=== PATIENT | male | born 1970 | race Hispanic/Latino ===

== ENCOUNTER 2018-04-23 16:06 | Inpatient (IN) | payer MEDICARE ==
[~2018-04-23] VITALS: Ht 180.3 cm; Wt 59.0 kg
[~2018-04-23 16:06] MED LIST: QUET200T PO
[2018-04-23 17:07] LABS: BASOPHILS % (AUTO) 0.3 % (0.0-5.0); EOSINOPHILS % (AUTO) 0.1 % (0.0-8.0); HEMATOCRIT 40.4 % (42-54); LYMPHOCYTES % (AUTO) 5.4 % (21.0-51.0); MEAN CORPUSCULAR HEMOGLOBIN 29.9 pg (27.0-33.0); MEAN CORPUSCULAR HGB CONC 33.3 g/dL (32.0-36.0); MEAN CORPUSCULAR VOLUME 89.6 fL (79-99); MONOCYTES % (AUTO) 4.8 % (3.0-13.0); NEUTROPHILS % (AUTO) 89.4 % (40.0-77.0); PLATELET COUNT (AUTO) 374 K/uL (130-400); RED BLOOD CELL COUNT(AUTO) 4.51 MIL/uL (4.50-6.20); RED CELL DISTRIBUTION WIDTH 15.4 % (11.0-15.5); WHITE BLOOD COUNT (AUTO) 25.9 K/uL (4.8-10.8)
[2018-04-23] MEDS ORDERED: CEFTRIAXONE SODIUM 1 GM ONE (17:09)
[2018-04-23] MEDS ORDERED: IPRATROPIUM/ALBUTEROL SULFATE 3 ML SOLUTION IH ONE ×2 (17:19→19:18)
[2018-04-23 17:27] LABS: AMYLASE 42 U/L (25-115); LIPASE 70 U/L (114-286)
[2018-04-23 17:35] LABS: INR 1.03 (0.85-1.15); PARTIAL THROMBOPLASTIN TIME 33.8 SEC (26.3-35.5); PROTHROMBIN TIME 10.8 SEC (9.6-11.6)
[2018-04-23 17:39] LABS: CREATININE 0.7 mg/dL (0.5-1.5); POTASSIUM 4.2 mmol/L (3.5-5.1)
[2018-04-23] MEDS: SODIUM CHLORIDE 0.9% 1000ML 1,000 ML IV SCH (17:39)
[2018-04-23 17:43] LABS: ALBUMIN 3.6 g/dL (3.5-5.0); BILIRUBIN,TOTAL 1.5 mg/dL (0.2-1.0); TOTAL PROTEIN, SERUM 8.9 g/dL (6.0-8.3)
[2018-04-23] MEDS ORDERED: ONDANSETRON HCL 4 MG/2 ML VIAL IV PRN (17:45)
[2018-04-23] MEDS ORDERED: VANCOMYCIN PROTOCOL PER PHARMACY IV PRN (17:45)
[2018-04-23] MEDS ORDERED: VANCOMYCIN 1GM+NS 250ML 250 ML IV SCH (17:45)
[2018-04-23] MEDS ORDERED: HYDRALAZINE HCL 20 MG/ML VIAL IV PRN (17:45)
[2018-04-23] MEDS ORDERED: LEVOFLOXACIN 500 MG/D5W 100 ML 100 ML ONE (18:58)
[2018-04-23] MEDS: IPRATROPIUM/ALBUTEROL SULFATE 3 ML SOLUTION IH SCH (19:19)
[2018-04-23] MEDS: ZOSYN 3.375GM+NS 50ML 50 ML IV SCH (21:00)
[2018-04-23] MEDS: FAMOTIDINE/PF 20 MG/2 ML VIAL IV SCH (21:00)
[2018-04-23] MEDS ORDERED: ZOSYN 3.375GM+NS 50ML 50 ML IV ONE (21:37)
[2018-04-23] MEDS ORDERED: FAMOTIDINE/PF 20 MG/2 ML VIAL IV ONE (21:38)
[2018-04-23] MEDS ORDERED: QUETIAPINE FUMARATE 100 MG TAB PO SCH (23:59)
[2018-04-24] VITALS (7 sets, daily range): BP systolic 117–151; BP diastolic 77–87
[2018-04-24] MEDS: IPRATROPIUM/ALBUTEROL SULFATE 3 ML SOLUTION IH SCH ×4 (00:40→18:32)
[2018-04-24] MEDS ORDERED: VANCOMYCIN 1GM+NS 250ML 250 ML IV ONE (01:37)
[2018-04-24] MEDS: SODIUM CHLORIDE 0.9% 1000ML 1,000 ML IV SCH ×3 (04:09→23:07)
[2018-04-24] MEDS: METHYLPREDNISOLONE SOD SUCC 40MG/ML 1ML IVP SCH ×2 (04:09→10:43)
[2018-04-24] MEDS: ZOSYN 3.375GM+NS 50ML 50 ML IV SCH ×3 (04:09→21:56)
[2018-04-24] MEDS ORDERED: PHARMACY COMMUNICATION MISC SCH (04:15)
[2018-04-24] MEDS ORDERED: GUAIFENESIN-CODEINE 5 ML SYRUP PO PRN (06:00)
--- NOTE | 2018-04-24 07:10 | NUR ---
During bedside report, pt was noted to have gotten out of bed, pulled out left forearm PIV. Blood on floor, bed. No active bleed at present. Pt escorted back to bed, cleaned up, new gown and linens. Called housekeeping to mop floors. Instructed DINKEY ENGINE FIRER to apply bed alarm (pt has old bed). Addendum: 04/24/18 at 1154 by APOORVA JACINTO RN RN Amended: Links added.
[2018-04-24] MEDS: FAMOTIDINE/PF 20 MG/2 ML VIAL IV SCH ×2 (10:38→21:54)
[2018-04-24] MEDS: VANCOMYCIN 1GM+NS 250ML 250 ML IV SCH ×2 (10:38→21:54)
[2018-04-24] MEDS: ENOXAPARIN SODIUM 40 MG/0.4 ML SYRINGE SQ SCH (10:41)
[2018-04-24] MEDS ORDERED: SODIUM CHLORIDE 3% FOR INHALATION 4 ML/AMP VIAL.NEB IH ONE ×2 (10:45→19:38)
--- NOTE | 2018-04-24 11:26 | NUR ---
Notified Lucy Moreno' office of consult with pt.
--- NOTE | 2018-04-24 11:29 | NUR ---
DYSPHAGIA EVAL COMPLETED. +S/S OF ASPIRATION WITH THIN LIQUIDS VIA CUP SIP. RECOMMEND PUREED, NECTAR-THICK LIQUIDS; PILLS CRUSHED WITH APPLESAUCE. PATIENT INFORMATION: Pt IS A 47 YEAR OLD MALE REFERRED FOR A BEDSIDE DYSPHAGIA EVAL SECONDARY TO HISTORY OF DYSPHAGIA AND POSSIBLE ASPIRATION PNEUMONIA. MBSS COMPLETED ON 04/16/18 WITH RECOMMENDATIONS FOR FINELY CHOPPED, NECTAR-THICK LIQUID DIET. Pt CURRENTLY ADMITTED SECONDARY TO ASPIRATION PNEUMONIA. Pt HAS A PAST MEDICAL HISTORY SIGNIFICANT FOR SCHIZOPHRENIA, PNEUMONIA AND WEIGHT LOSS. REPORTS THAT Pt WAS PARTICIPATING IN SOLID DIET WITH THIN LIQUIDS PRIOR TO ADMISSION. EVALUATION: Pt PRESENTS WITH MODERATE OROPHARYNGEAL DYSPHAGIA CAUSED BY DECREASED ORAL MOTOR COORDINATION, DECREASED TONGUE BASE RETRACTION, DELAYED PHARYNGEAL RESPONSE TIME, DECREASED PRESSURE GENERATION WITHIN THE PHARYNX, E/B DECREASED ROTARY MASTICATION, RESIDUE IN TONGUE BODY, RESULTING IN +S/S OF ASPIRATION WITH THIN LIQUIDS VIA CUPS SIP OF WEAK COUGH RESPONSE AND THROAT CLEAR. RECOMMENDATIONS: 1. PUREED, NECTAR-THICK LIQUIDS; PILLS CRUSHED WITH APPLESAUCE 2. COMPENSATORY STRATEGIES: *SEATED AT 90 DEGREES *SLOW RATE *ALTERNATE BITES AND SIPS 5. DYSPHAGIA THERAPY 3-5X WEEK TO INCREASE ORAL MOTOR STRENGTH AND PHARYNGEAL SWALLOW: LTG#1: Pt WILL TOLERATE LEAST RESTRICTIVE DIET TO MEET NUTRITION/HYDRATION WITH NO S/S OF ASPIRATION. LTG#2: SKILLED EDUCATION Pt/FAMILY/STAFF STG#1: Pt WILL PARTICIPATE IN LARYNGEAL ELEVATION/EXCURSION EXERCISES WITH 80% ACCURACY. STG#2: Pt WILL PARTICIPATE IN TONGUE BASE RETRACTION EXERCISES WITH 80% ACCURACY. STG#3: Pt WILL PARTICIPATE IN ORAL MOTOR EXERCISES WITH 80% ACCURACY. STG#4: Pt WILL PARTICIPATE IN THERAPEUTIC TRIALS OF [facility] SOFT AND THIN LIQUIDS WITH NO S/S OF ASPIRATION. STG#5: SKILLED EDUCATION Pt/FAMILY/STAFF. GIFTS OFFICER REVIEWED RESULTS AND RECOMMENDATIONS WITH Pt, NURSE, AND . VERBALIZED AGREEMENT AND COMPLIANCE WITH RECOMMENDATIONS. GIFTS OFFICER EDUCATED ON RISKS AND CONSEQUENCES OF ASPIRATION. G-CODES SWALLOWING: [id number] Addendum: 04/24/18 at 1139 by GREGORIO LEWIS, [facility] Amended: Links added.
--- NOTE | 2018-04-24 11:40 | NUR ---
Nutrition Intervention: Nutrition screen due to BMI 18.1. Pt. admitted with Dx of Aspiration Pneumonia. Speech consult ordered due to pt. with swallowing difficulty. Pt. S/P Dysphagia evaluation on 04/23/18- TAX SERVICES MANAGER rec. Pureed texture with Yardley Thick liquids. Pt. NPO during visit. Pt. started on Pureed diet with [place]ley Thick Liquids for lunch meal. Labs reviewed(Alb 3.6). LBM: 04/24/18. SR-19, elastic. BMI: 18.1, underweight. Recommendations: 1) Continue current diet. 2) Continue to monitor pt's nutritional status. 3) Consult RD as nutrition concerns arise. Addendum: 04/24/18 at [address] Amended: Links added.
--- NOTE | 2018-04-24 16:46 | NUR ---
Walked in to pt's room as he was eating dinner. Pt coughing and gasping after each bite of pureed foods, family continuing to feed him despite this. Informed family that patient appears to be aspirating, and instructed them to stop. Notified Miki Giraldo NP. Rec'd order for NPO, speech to re-eval in am. Pt able to clear food from airway on his own. No apparent distress.
--- NOTE | 2018-04-24 17:30 | NUR ---
NIRALI NOTES- MET W PATIENT MOTHER AND SISTER. PT MAKES EYE CONTACT, SPEAKS VEYR SOFTLY AND FOLLOW COMAND. GRINDS TEETH, TEARS UP AND MENTION OF HIS SONS NAME. SKIN WARM /HOT, GIRM VERY WEAK WHEN SHAKES HANDS FAMILY STATES PT WAS IN ICU X5 DAYS THEN SENT OT [facility] THEN SENT TO [facility]- FAMILY STATES THEY DID NOT KNOW OF THE TRANSFER. NOW HERE WITH ASPIRATION PNEUMONIA FAMILY STATES THAT UNTIL RECENTLY - OF SON- THE PATIENT WAS FUNCTIONAL- AFTER OF SON HAD DEPRESSION/BREAKDOWN, AND HAD STROKE. NOW ASPIRATING. ABX TX AND PT EVAL . WILL FOLLOW UP FOR PLACMENT OPTION ON DISCHARGE. FAMILY DOES NOT WANT PATIENT TO GO [facility] TO [facility] Addendum: 04/24/18 at 2020 by ELIF MARCELO RN CM Amended: Links added.
[2018-04-24] MEDS ORDERED: ARIPIPRAZOLE 5 MG TABLET PO SCH (21:00)
[2018-04-24] MEDS ORDERED: ALPRAZOLAM 1 MG TAB PO SCH (21:00)
[2018-04-24] MEDS: ARIPIPRAZOLE 5 MG TABLET PO SCH (21:54)
[2018-04-25] MEDS: IPRATROPIUM/ALBUTEROL SULFATE 3 ML SOLUTION IH SCH ×4 (00:41→19:09)
[2018-04-25 03:18] VITALS: BP 125/79
[2018-04-25] MEDS: ZOSYN 3.375GM+NS 50ML 50 ML IV SCH ×3 (04:15→20:30)
[2018-04-25 04:28] LABS: BASOPHILS % (AUTO) 0.2 % (0.0-5.0); HEMATOCRIT 29.4 % (42-54); LYMPHOCYTES % (AUTO) 6.1 % (21.0-51.0); MEAN CORPUSCULAR HEMOGLOBIN 30.2 pg (27.0-33.0); MEAN CORPUSCULAR HGB CONC 33.6 g/dL (32.0-36.0); MEAN CORPUSCULAR VOLUME 89.8 fL (79-99); MONOCYTES % (AUTO) 4.5 % (3.0-13.0); NEUTROPHILS % (AUTO) 89.2 % (40.0-77.0); PLATELET COUNT (AUTO) 306 K/uL (130-400); RED BLOOD CELL COUNT(AUTO) 3.28 MIL/uL (4.50-6.20); RED CELL DISTRIBUTION WIDTH 15.3 % (11.0-15.5); WHITE BLOOD COUNT (AUTO) 15.1 K/uL (4.8-10.8)
[2018-04-25 04:54] LABS: CREATININE 0.5 mg/dL (0.5-1.5); POTASSIUM 3.5 mmol/L (3.5-5.1)
[2018-04-25 07:56] VITALS: BP 129/74
[2018-04-25] MEDS: FAMOTIDINE/PF 20 MG/2 ML VIAL IV SCH ×2 (08:22→20:30)
[2018-04-25] MEDS: ENOXAPARIN SODIUM 40 MG/0.4 ML SYRINGE SQ SCH (08:22)
[2018-04-25] MEDS: VANCOMYCIN 1GM+NS 250ML 250 ML IV SCH (08:23)
[2018-04-25] MEDS: SODIUM CHLORIDE 0.9% 1000ML 1,000 ML IV SCH ×2 (09:44→20:29)
[2018-04-25 11:04] VITALS: BP 141/82
--- NOTE | 2018-04-25 15:12 | NUR ---
BEDSIDE DYSPHAGIA RE-EVAL COMPLETE. +S/S OF ASPIRATION WITH PUREE AND NECTAR LIQUIDS. RECOMMEND SHORT-TERM ALTERNATE MEANS OF NUTRITION/HYDRATION (NG) AND MBSS FOR FRIDAY. PATIENT INFORMATION: Pt IS 47 Y.O. MALE REFERRED FOR DYSPHAGIA RE-EVAL SECONDARY TO NURSING OBSERVED COUGHING, CHOKING, AND GASPING FOR AIR, WITH PREVIOUSLY RECOMMENDED DIET OF PUREE TEXTURES AND NECTAR THICK LIQUIDS. Pt SEEN BY METAL WORK DUCT INSTALLER ON 04/24/18 WITH RECOMMENDATION OF PUREE TEXTURES AND NECTAR THICK LIQUIDS SECONDARY TO +S/S OF ASPIRATION WITH THIN LIQUIDS. Pt ALSO HAD MBSS ON 04/16/18 WITH RECOMMENDATION OF [facility] SOFT FINELY CHOPPED TEXTURES AND NECTAR THICK LIQUIDS. PER REPORT, Pt WAS NOT DRINKING NECTAR THICK LIQUIDS AT HOME AND IS NOW ADMITTED WITH DX OF ASPIRATION PNEUMONIA. ALSO REPORTS SHE HAS NOTICED A PATTERN OF DIFFICULTY SWALLOWING WHEN Pt IS TAKING SEROQUEL. SEROQUEL D/C'd ON 04/23/18. PMHX SIGNIFICANT FOR SCHIZOPHRENIA, PNEUMONIA, AND WEIGHT LOSS. EVALUATION: Pt PRESENTS WITH MODERATE ORAL AND SEVERE PHARYNGEAL DYSPHAGIA C/B DECREASED ORAL STRENGTH AND ROM, DECREASED ORAL COORDINATION, DELAYED PHARYNGEAL RESPONSE TIME, DECREASED PHARYNGEAL STRIPPING, DECREASED LARYNGEAL ELEVATION/EXCURSION, AND IMPAIRED AIRWAY PROTECTION E/B INCREASED ORAL PREP TIME WITH PUREE, ORAL RESIDUE WITH PUREE, AND +S/S OF ASPIRATION OF COUGH AND THROAT CLEARING WITH PUREE AND NECTAR THICK LIQUIDS. RECOMMENDATIONS: 1. MBSS FOR FRIDAY 2. SHORT TERM ALTERNATE MEANS OF NUTRITION/HYDRATION (NG) UNTIL MBSS RESULTS G-CODES SWALLOWING: [id number] - [id number] - Addendum: 04/25/18 at 1528 by SANDOVAL MONTALVO Amended: Links added.
[2018-04-25 16:10] VITALS: BP 136/86
--- NOTE | 2018-04-25 16:30 | NUR ---
ST RECOMMENDATIONS INFORMED PAULA MARCUS, FITNESS/WELLNESS DIRECTOR FOR HOSPITALIST REGARDING SPEECH THERAPY RECOMMENDATIONS, REPLIED TO KEEP PATIENT NPO FOR NOW AND HOSPITALIST WILL TALK TO FAMILY TOMORROW REGARDING POSSIBLE FEEDING TUBE PLACEMENT.
[2018-04-25 19:00] VITALS: BP 138/85
[2018-04-25] MEDS ORDERED: COMPOUND IV REFRIGERATED 1 EACH IVSOLN MISC PRN (21:00)
[2018-04-25] MEDS: ARIPIPRAZOLE 5 MG TABLET PO SCH (21:00)
[2018-04-25] MEDS: VANCOMYCIN 1.25 GM in SODIUM CHLORIDE 0.9% 250 ML IV SCH (22:32)
[2018-04-25 23:13] VITALS: BP 131/90
[2018-04-26] MEDS: IPRATROPIUM/ALBUTEROL SULFATE 3 ML SOLUTION IH SCH ×4 (00:22→18:32)
[2018-04-26 03:25] VITALS: BP 139/77
[2018-04-26] MEDS: ZOSYN 3.375GM+NS 50ML 50 ML IV SCH ×3 (05:15→20:58)
[2018-04-26] MEDS: SODIUM CHLORIDE 0.9% 1000ML 1,000 ML IV SCH (05:15)
[2018-04-26 06:02] LABS: BASOPHILS % (AUTO) 0.6 % (0.0-5.0); EOSINOPHILS % (AUTO) 0.2 % (0.0-8.0); HEMATOCRIT 27.8 % (42-54); MEAN CORPUSCULAR HEMOGLOBIN 30.6 pg (27.0-33.0); MEAN CORPUSCULAR HGB CONC 34.2 g/dL (32.0-36.0); MEAN CORPUSCULAR VOLUME 89.5 fL (79-99); MONOCYTES % (AUTO) 8.8 % (3.0-13.0); NEUTROPHILS % (AUTO) 73.4 % (40.0-77.0); PLATELET COUNT (AUTO) 253 K/uL (130-400); RED BLOOD CELL COUNT(AUTO) 3.11 MIL/uL (4.50-6.20); RED CELL DISTRIBUTION WIDTH 15.2 % (11.0-15.5); WHITE BLOOD COUNT (AUTO) 9.7 K/uL (4.8-10.8)
[2018-04-26 06:18] LABS: ALBUMIN 2.4 g/dL (3.5-5.0); CREATININE 0.5 mg/dL (0.5-1.5); TOTAL PROTEIN, SERUM 6.2 g/dL (6.0-8.3)
[2018-04-26 06:22] LABS: POTASSIUM 2.9 mmol/L (3.5-5.1)
[2018-04-26] MEDS: LIDOCAINE HCL-MPF 1% 2ML VIAL IVP PRN ×2 (07:39→13:52)
[2018-04-26] MEDS: POTASSIUM CHLORIDE 20MEQ/100ML 100 ML IV PRN ×2 (07:39→13:52)
[2018-04-26 08:00] VITALS: BP 133/83
--- NOTE | 2018-04-26 09:30 | NUR ---
MEDICATIONS ADMINISTRATION ADMINISTERED SCHEDULED PEPCID, VANCOMYCIN, AND LOVENOX. REFER TO EMAR FOR TIMES GIVEN, USERNAME ON [employer] IS INCORRECT.
[2018-04-26] MEDS: FAMOTIDINE/PF 20 MG/2 ML VIAL IV SCH ×2 (09:32→20:58)
[2018-04-26] MEDS: ENOXAPARIN SODIUM 40 MG/0.4 ML SYRINGE SQ SCH (09:32)
[2018-04-26] MEDS: VANCOMYCIN 1.25 GM in SODIUM CHLORIDE 0.9% 250 ML IV SCH ×2 (09:33→20:59)
[2018-04-26 11:53] VITALS: BP 137/91
[2018-04-26] MEDS: DEXTROSE 5 % AND 0.9 % NACL 1,000 ML IV SCH ×2 (13:52→21:54)
[2018-04-26 16:24] VITALS: BP 135/84
[2018-04-26 19:11] VITALS: BP 128/83
[2018-04-26] MEDS: ARIPIPRAZOLE 5 MG TABLET PO SCH (20:59)
[2018-04-26 23:12] VITALS: BP 137/67
[2018-04-27] MEDS: IPRATROPIUM/ALBUTEROL SULFATE 3 ML SOLUTION IH SCH ×5 (00:08→23:37)
[2018-04-27 04:00] VITALS: BP 130/88
[2018-04-27] MEDS: ZOSYN 3.375GM+NS 50ML 50 ML IV SCH ×3 (04:43→22:46)
[2018-04-27 06:45] LABS: BASOPHILS % (AUTO) 0.5 % (0.0-5.0); EOSINOPHILS % (AUTO) 1.5 % (0.0-8.0); HEMATOCRIT 30.6 % (42-54); LYMPHOCYTES % (AUTO) 19.2 % (21.0-51.0); MEAN CORPUSCULAR HEMOGLOBIN 30.8 pg (27.0-33.0); MEAN CORPUSCULAR HGB CONC 34.9 g/dL (32.0-36.0); MEAN CORPUSCULAR VOLUME 88.4 fL (79-99); MONOCYTES % (AUTO) 11.2 % (3.0-13.0); NEUTROPHILS % (AUTO) 67.6 % (40.0-77.0); PLATELET COUNT (AUTO) 274 K/uL (130-400); RED BLOOD CELL COUNT(AUTO) 3.46 MIL/uL (4.50-6.20); RED CELL DISTRIBUTION WIDTH 14.6 % (11.0-15.5); WHITE BLOOD COUNT (AUTO) 8.4 K/uL (4.8-10.8)
[2018-04-27] MEDS: DEXTROSE 5 % AND 0.9 % NACL 1,000 ML IV SCH ×2 (06:46→22:47)
[2018-04-27 07:23] LABS: ALBUMIN 2.3 g/dL (3.5-5.0); BILIRUBIN,TOTAL 1.3 mg/dL (0.2-1.0); CREATININE 0.6 mg/dL (0.5-1.5); TOTAL PROTEIN, SERUM 6.4 g/dL (6.0-8.3)
[2018-04-27 07:26] LABS: POTASSIUM 2.9 mmol/L (3.5-5.1)
[2018-04-27 08:33] VITALS: BP 120/77
--- NOTE | 2018-04-27 09:00 | NUR ---
NOTE AWAKE, ALERT. NONVERBAL DOES TRY TO SAY SOME WORDS BUT ARE JUST INCOMPREHENSIBLE TO UNDERSTAND. APPEARS TO UNDERSTAND WHAT WE TELL HIM AND FOLLOW SOME COMMANDS. HAS BEEN THIS WAY, ACCORDING TO FAMILY, SINCE TRAUMATIC OF HIS SON AND OTHER FAMILY EVENTS. HE HAS H/O PSYCHIATRIC PROBLEMS AND HAS BEEN SEEN BY DR MCKENZIE HERE WELL. WAS DX WITH PNA ON ADMISSION PER ABNORMAL CXR AND SWALLOW REFLEX HAVE BEEN EVALUATED TWICE SINCE HE HAS BEEN HERE AND HAVE GOTTEN WORSE SINCE ADMISSION. HE WILL HAVE MBSS TODAY RECOMMENDED BY S.T. WILL REMAIN NPO UNTIL THEN.
[2018-04-27] MEDS: FAMOTIDINE/PF 20 MG/2 ML VIAL IV SCH ×2 (11:12→22:46)
[2018-04-27] MEDS: ENOXAPARIN SODIUM 40 MG/0.4 ML SYRINGE SQ SCH (11:12)
[2018-04-27] MEDS: VANCOMYCIN 1.25 GM in SODIUM CHLORIDE 0.9% 250 ML IV SCH ×2 (11:12→22:46)
[2018-04-27] MEDS: POTASSIUM CHLORIDE 20MEQ/100ML 100 ML IV PRN ×2 (11:13→18:29)
[2018-04-27 11:55] VITALS: BP 134/90
--- NOTE | 2018-04-27 13:17 | NUR ---
DC PLANNING SNF VS [facility] SPOKE TO SPOUSE, MD AND LELE. PT RECENT FUNCTIONAL DECLINE- PREVIOUSLY CARE FOR BY FAMILY RECENT PSYCH MED CHANGES. RECENT PLACEMENT AT [facility] SADE BROCK FOR WANDERING? SPOUSE SAYS UNSURE WHY PT WAS TRANSFERRED TO [facility] WHEN HE FOLLOWS COMMAND AND DOES NOT TRY TO ESCAPE/ GET OUT OF BED. PT HAS SEMI CONTRACTED HANDS, UNABLE TO FEED SELF- HAS PT OT ST NEEDS Addendum: 04/27/18 at 1323 by ELIF MARCELO RN CM Amended: Links added.
--- NOTE | 2018-04-27 13:24 | NUR ---
MBSS COMPLETED. ASPIRATION WITH MIXED AND DEEP PENETRATION WITH THIN LIQUIDS VIA CUP SIP. RECOMMEND PUREED, NECTAR-THICK LIQUIDS; PILLS CRUSHED WITH APPLESAUCE. PATIENT INFORMATION: Pt IS A 47 YEAR OLD MALE REFERRED FOR AN MBSS SECONDARY TO +S/S OF ASPIRATION DURING BEDSIDE DYSPHAGIA EVALUATION. Pt COOPERATIVE DURING THE MBSS WITH LIMITED VERBAL OUTPUT. Pt CURRENTLY ADMITTED SECONDARY TO ASPIRATION PNEUMONIA. Pt HAS A PAST MEDICAL HISTORY SIGNIFICANT FOR SCHIZOPHRENIA, PNEUMONIA AND WEIGHT LOSS. MBSS INTERPRETATION: Pt PRESENTS WITH MODERATE OROPHARYNGEAL DYSPHAGIA CAUSED BY DECREASED ORAL MOTOR COORDINATION AND STRENGTH, DECREASED TONGUE BASE RETRACTION, DELAYED PHARYNGEAL RESPONSE TIME, DECREASED PRESSURE GENERATION WITHIN THE PHARYNX, E/B DECREASED LABIAL SEAL, DECREASED SPOON STRIPPING, DECREASED ROTARY MASTICATION, HOLDING OF BOLUS IN ORAL CAVITY, MULTIPLE SWALLOWS PER BOLUS, SEVERE POOLING IN THE VALLECULAE WITH SPILLOVER IN TO PYRIFORM SINUS (CLEARED WITH RE-SWALLOW AND LIQUID WASH), RESULTING IN DEEP PENETRATION WITH THIN LIQUIDS VIA TSP AND ASPIRATION WITH MIXED TEXTURE. TRIALS: 1. TSP PUREED: POOLING IN THE VALLECULAE CLEARED WITH RE-SWALLOW 2. TSP NECTAR-THICK LIQUIDS: POOLING IN THE VALLECULAE 3. TSP PUDDING: POOLING IN THE VALLECULAE 4. TSP MIXED: ASPIRATION 5. TSP THIN LIQUIDS: DEEP PENETRATION 6. CUP SIP NECTAR-THICK LIQUIDS: POOLING IN VALLECULAE AND PYRIFORM SINUS 7. TSP HONEY-THICK: GOOD WITH RESIDUE IN VALLECULAE AND PYRIFORM SINUS 8. CUP SIP NECTAR-THICK LIQUIDS: GOOD 9. DRY SWALLOW AFTER 2 MINUTES FROM PRIOR PRESENTATION: POOLING CLEARED RECOMMENDATIONS: 1. PUREED, NECTAR-THICK LIQUIDS; PILLS WHOLE WITH LIQUIDS 2. COMPENSATORY STRATEGIES: *SEATED AT 90 DEGREES *SLOW RATE *ALTERNATE BITES AND SIPS *NO STRAW *RE-SWALLOW *REMAIN UPRIGHT 30 MINUTES AFTER THE MEAL 5. DYSPHAGIA THERAPY 3-5X WEEK TO INCREASE ORAL MOTOR STRENGTH AND PHARYNGEAL SWALLOW: LTG#1: Pt WILL TOLERATE LEAST RESTRICTIVE DIET TO MEET NUTRITION/HYDRATION WITH NO S/S OF ASPIRATION. LTG#2: SKILLED EDUCATION Pt/FAMILY/STAFF STG#1: Pt WILL PARTICIPATE IN LARYNGEAL ELEVATION/EXCURSION EXERCISES WITH 80% ACCURACY. STG#2: Pt WILL PARTICIPATE IN TONGUE BASE RETRACTION EXERCISES WITH 80% ACCURACY. STG#3: Pt WILL PARTICIPATE IN ORAL MOTOR EXERCISES WITH 80% ACCURACY. STG#4: Pt WILL PARTICIPATE IN THERAPEUTIC TRIALS OF THIN LIQUIDS WITH NO S/S OF ASPIRATION,. STG#5: SKILLED EDUCATION Pt/FAMILY/STAFF. CITY MAIL CARRIER REVIEWED RESULTS AND RECOMMENDATIONS WITH Pt, NURSE, AND . CITY MAIL CARRIER PROVIDED WITH A THICKENER TO USE IN THE HOME SETTING. SHE VERBALIZED AGREEMENT AND COMPLIANCE WITH RECOMMENDATIONS. CITY MAIL CARRIER EDUCATED ON RISKS AND CONSEQUENCES OF ASPIRATION. G-CODES SWALLOWING: [id number] Addendum: 04/27/18 at 1333 by GREGORIO LEWIS, [facility] Amended: Links added.
[2018-04-27 16:18] VITALS: BP 126/76
--- NOTE | 2018-04-27 17:00 | NUR ---
DECLINED BY IRU, REFERRAL TO SN[facility]. PENDING EVALUATION
--- NOTE | 2018-04-27 18:00 | NUR ---
NOTE DID NOT HAVE ANY CHANGES IN LOC. HE COMPLETED HIS MBSS AND WAS RECOMMENDED THAT HE GETS A MODIFIED DIET. INFORMED PRIMARY CARE TEAM AND ORDERS RECEIVED TO FOLLOW RECOMMENDATIONS. INSTRUCTIONS FOR PEOPLE THAT HELP HIM WITH HIS MEALS ARE WRITTEN ON THE BOARD.HE HAS ALSO BEEN RECEIVING COVERAGE FOR LOW POTASSIUM LEVELS.
[2018-04-27 20:00] VITALS: BP 133/87
[2018-04-27] MEDS: ARIPIPRAZOLE 5 MG TABLET PO SCH (22:46)
[2018-04-28] VITALS: BP 123/82
[2018-04-28 04:00] VITALS: BP 128/92
[2018-04-28 05:09] LABS: MEAN CORPUSCULAR HEMOGLOBIN 30.1 pg (27.0-33.0); MEAN CORPUSCULAR HGB CONC 34.3 g/dL (32.0-36.0); MEAN CORPUSCULAR VOLUME 87.5 fL (79-99); PLATELET COUNT (AUTO) 319 K/uL (130-400); RED CELL DISTRIBUTION WIDTH 14.7 % (11.0-15.5); WHITE BLOOD COUNT (AUTO) 7.6 K/uL (4.8-10.8)
[2018-04-28 05:17] LABS: CREATININE 0.5 mg/dL (0.5-1.5)
[2018-04-28] MEDS: ZOSYN 3.375GM+NS 50ML 50 ML IV SCH ×3 (05:53→21:45)
[2018-04-28] MEDS: POTASSIUM CHLORIDE 20MEQ/100ML 100 ML IV PRN ×2 (05:54→10:03)
[2018-04-28] MEDS: LIDOCAINE HCL-MPF 1% 2ML VIAL IVP PRN ×2 (05:56→10:05)
[2018-04-28] MEDS: IPRATROPIUM/ALBUTEROL SULFATE 3 ML SOLUTION IH SCH ×4 (06:03→23:18)
[2018-04-28 08:02] VITALS: BP 143/95
[2018-04-28] MEDS: FAMOTIDINE/PF 20 MG/2 ML VIAL IV SCH ×2 (08:10→21:46)
[2018-04-28] MEDS: ENOXAPARIN SODIUM 40 MG/0.4 ML SYRINGE SQ SCH (08:11)
[2018-04-28] MEDS: VANCOMYCIN 1.25 GM in SODIUM CHLORIDE 0.9% 250 ML IV SCH ×2 (10:02→21:46)
[2018-04-28] MEDS: DEXTROSE 5 % AND 0.9 % NACL 1,000 ML IV SCH (10:05)
[2018-04-28 11:01] VITALS: BP 132/91
--- NOTE | 2018-04-28 12:27 | NUR ---
SWALLOWING TREATMENT COMPLETED. S: Pt RAISED TO 90 DEGREES IN BED. Pt COUGHING WHILE TAKING DEEP BREATHS PRIOR TO PRESENTATION OF P.O. NURSE ARASH REPORTS Pt HAS BEEN COUGHING AND HAS CONCERNS OF POSSIBLE ASPIRATION. PLEASE NOTE THAT THIN LIQUIDS WERE PRESENT AT SIDE OF THE BED, LIQUIDS THICKENED BY ANIMAL SURGEON. O: Pt CURRENTLY TARGETING SWALLOWING GOALS. RESULTS OF GOALS ARE FOLLOWS: *Pt PARTICIPATED IN THERAPEUTIC TRIALS OF PUDDING AND NECTAR-THICK LIQUIDS X10 WITH THE FOLLOWING ASPIRATION PRECAUTIONS ENSURED BY ANIMAL SURGEON: SEATED AT 90, SLOW RATE, RE-SWALLOW AFTER EACH TRIAL, NO STRAW. Pt WITH NO S/S OF ASPIRATION PRESENT DURING ANY TRIAL. ANIMAL SURGEON PROVIDED INCREASED VERBAL CUES AND TACTILE CUES TO COMPLETE RE-SWALLOW. Pt REMAIN UPRIGHT AFTER P.O. NO COUGHING, THROAT CLEARING OR DIFFICULTY BREATHING PRESENT AFTER P.O. *Pt DID NOT COMPLETE LARYNGEAL ELEVATION AND ORAL MOTOR EXERCISES SECONDARY TO DECREASED ABILITIES TO FOLLOW COMMANDS. MULTIPLE ATTEMPTS BY ANIMAL SURGEON TO COMPLETE EXERCISES: UNSUCCESSFUL. A: Pt WITH IMPROVED SWALLOW FUNCTION AND ABLE TO PROVIDE RE-SWALLOW. SAFE SWALLOW PRECAUTIONS ARE ON Pt'S WHITE BOARD; WRITTEN BY ANIMAL SURGEON. P: RECOMMEND CONTINUED SKILLED SPEECH THERAPY AND EDUCATION TO FAMILY ON RISKS AND CONSEQUENCES OF ASPIRATION. RECOMMEND CONTINUED PUREED, NECTAR-THICK LIQUID DIET; PILLS CRUSHED WITH APPLESAUCE. ANIMAL SURGEON WILL CONTINUE TO FOLLOW Pt TOLERATED. Addendum: 04/28/18 at 1237 by GREGORIO LEWIS [facility] Amended: Links added.
[2018-04-28] MEDS ORDERED: MAGNESIUM 2GM PREMIX 50ML 50 ML IV PRN (12:45)
--- NOTE | 2018-04-28 14:03 | NUR ---
Nutrition f/u: As per pt's Bag Bleacher's request, RD screen and assessed patient for malnutrition. Pt with moderate to severe protein calori malnutrition. BMI 18.1. Poor PO intake. No family at bedside to obtain nutrition feedback on eating patterns and wt changes. As per pt's caser shoe parts, pt does not initiate walking on his own, requires assistance. Alb 2.3, dropping since previous RD visit. Recommendations: Feeding assistance to redirect him to eating. Consult RD when pt's primary caregiver is present. Continue current diet therapy with FRONT OFFICE SPECIALIST texture recommendations. Nutrition supplementation once daily for added caloric and protein intake. Addendum: 04/28/18 at [address] Amended: Links added.
[2018-04-28 16:48] VITALS: BP 146/88
--- NOTE | 2018-04-28 16:50 | NUR ---
[facility] HERE TO EVALUATE PT PENDING ACCEPTANCE TOMORROW
[2018-04-28 20:00] VITALS: BP 133/90
[2018-04-28] MEDS: ARIPIPRAZOLE 5 MG TABLET PO SCH (21:46)
[2018-04-29] VITALS: BP 138/86
[2018-04-29] MEDS: DEXTROSE 5 % AND 0.9 % NACL 1,000 ML IV SCH ×2 (03:44→10:18)
[2018-04-29 04:05] VITALS: BP 133/96
[2018-04-29 04:07] LABS: HEMATOCRIT 34.6 % (42-54); MEAN CORPUSCULAR HEMOGLOBIN 30.7 pg (27.0-33.0); MEAN CORPUSCULAR HGB CONC 34.3 g/dL (32.0-36.0); MEAN CORPUSCULAR VOLUME 89.4 fL (79-99); NUCLEATED RED BLOOD CELLS 0.1 % (0.0-0.19); PLATELET COUNT (AUTO) 326 K/uL (130-400); RED BLOOD CELL COUNT(AUTO) 3.87 MIL/uL (4.50-6.20); RED CELL DISTRIBUTION WIDTH 14.8 % (11.0-15.5)
[2018-04-29 05:08] LABS: CREATININE 0.5 mg/dL (0.5-1.5); POTASSIUM 3.2 mmol/L (3.5-5.1)
[2018-04-29] MEDS: ZOSYN 3.375GM+NS 50ML 50 ML IV SCH ×2 (05:41→17:11)
[2018-04-29] MEDS: IPRATROPIUM/ALBUTEROL SULFATE 3 ML SOLUTION IH SCH ×3 (06:16→19:03)
[2018-04-29 09:33] VITALS: BP 124/90
[2018-04-29] MEDS: POTASSIUM CHLORIDE 20MEQ/100ML 100 ML IV PRN (10:18)
[2018-04-29] MEDS: FAMOTIDINE/PF 20 MG/2 ML VIAL IV SCH (10:18)
[2018-04-29] MEDS: VANCOMYCIN 1.25 GM in SODIUM CHLORIDE 0.9% 250 ML IV SCH (10:18)
[2018-04-29] MEDS: ENOXAPARIN SODIUM 40 MG/0.4 ML SYRINGE SQ SCH (10:19)
--- NOTE | 2018-04-29 10:55 | NUR ---
ACCEPTED AT [facility]!!
[2018-04-29 11:30] VITALS: BP 129/85
--- NOTE | 2018-04-29 12:08 | NUR ---
MEAL OBSERVATION COMPLETED. RECOMMEND LONG-TERM ALTERNATE MEANS OF NUTRITION/HYDRATION WITH PLEASURE FEEDS OF PUREED, NECTAR-THICK LIQUIDS. Pt RAISED TO 90 DEGREES WITH P.O.PRESENTATION PROVED BY WEEKEND RECEPTIONIST: SLOW RATE, ALTERNATE BITES AND SIPS, SMALL BITES AND SIPS, CUE FOR SWALLOW. Pt WITH +S.S OF ASPIRATION AFTER MINUTES OF P.O. OF COUGH RESPONSE AND HEAVY BREATHING. Pt WITH MBSS RESULTS OF NO ASPIRATION, HOWEVER, FATIGUE IS AN ISSUE AT THIS TIME. RESULTING IN ASPIRATION DUE TO FATIGUE IN THE LATTER PART OF P.O. FAMILY WAS NOT PRESENT AT THIS TIME TO REVIEW RECOMMENDATIONS AND PLAN OF CARE. WEEKEND RECEPTIONIST DISCUSSED RECOMMENDATIONS WITH NURSE GUERIN. RECOMMENDATIONS: 1. LONG-TERM ALTERNATE MEANS OF NUTRITION/HYDRATION 2. PLEASURE FEEDS OF PUREED, NECTAR-THICK LIQUIDS 3. GI CONSULT Addendum: 04/29/18 at 1213 by GREGORIO LEWIS, [facility] ST Amended: Links added.
[2018-04-29 16:54] VITALS: BP 136/89
--- NOTE | 2018-04-29 16:55 | NUR ---
CM NOTE AND UPDATE SPOKE TO NAMAN BELL PERSON ABOUT TIMING OF ABX TONIGHT; LAST DOES OF [place] IS AT 9 PM COULD PT GO IN AM? SHE STATED IT WAS OK FOR PATIENT TO GO TONIGHT EVEN IF IT MEANS MISSING A SCHEDULED DOSE OF ABX- PT CAN START IN AM. ASKED NAMAN BELL PERSON ABOUT THE RECOMMENDATION FOR A PEG FROM SPEECH . NAMAN STATES PATIENT HAD PASSED TWO MBSS WITH MODIFICATIONS; DID NOT NEED TO ORDER ANOTHER , STATES MD SAID THAT IF PT HAS PASSED MBSS, IT IS NOT APPROPRIATE TO TALK TO FAMILY ABOUT A PEG. PT IS GOING FOR SPEECH THERAPY AT [facility], LETS SEE HOW HE DOES . LET PRIMARY RN KNOW
--- NOTE | 2018-04-29 17:00 | NUR ---
NOTIFIED NIRALI ASENCIO OF ST EVAL TODAY AND OF RECOMMENDATIONS FOR PEG, GI CONSULT. NIRALI NOTIFIED NURSE THAT SHE SPOKE WITH Radha LUIS NP FOR HOSPITALIST, WHO INDICATED THAT FAMILY IS NOT WILLING TO DO PEG PLACEMENT, AND THAT PT WILL STILL BE DISCHARGED TO SNF TODAY.
--- NOTE | 2018-04-29 19:10 | NUR ---
REPORT CALLED TO [facility] NURSE AISHA SHEPPARD, COOK[facility]; SHE REQUESTED PIV'S BE LEFT IN PLACE FOR USE AT THEIR FACILITY. NOTIFIED OMID LORENZANA OF TRANSFER. DISCHARGE TEACHING VIA TELEPHONE WITH ; EMPHASIS ON IMPORTANCE OF TAKING MEDICATIONS EXACTLY DIRECTED AND IMPORTANCE OF FOLLOWING DIETARY RECOMMENDATIONS. [facility] HERE TO HOSPITALITY SERVICES MANAGER PATIENT. PIV'S LEFT IN PLACE PER REQUEST. PT IN STABLE CONDITION AT TIME OF DISCHARGE. ALL ORDERS AND CHART COPY GIVEN TO [facility] SHIFT LAB TECHNICIAN. PT IN STABLE CONDITION AT TIME OF DISCHARGE.
--- NOTE | 2018-04-30 09:22 | NUR ---
DC Plan Discharged to [facility] Addendum: 04/30/18 at 0923 by DAVE CAMPOS CM Amended: Links added.
== END 2018-04-29 19:30 | DRG 871 ==
LOC: EDH 16:06 → EDHIP 17:39 → 4CH 04-24 00:53 → 4BH 04-24 21:31
PROVIDERS: ADMIT Internal Medicine; ATTEND Internal Medicine
DX: A41.9 Sepsis, unspecified organism (principal); J69.0 Pneumonitis due to inhalation of food and vomit; E46 Unspecified protein-calorie malnutrition; Z68.1 Body mass index [BMI] 19.9 or less, adult; E87.6 Hypokalemia; F20.9 Schizophrenia, unspecified; F31.9 Bipolar disorder, unspecified; R13.12 Dysphagia, oropharyngeal phase; Z83.3 Family history of diabetes mellitus; Z82.49 Family history of ischemic heart disease and other diseases of the circulatory system; Z74.01 Bed confinement status
CPT/HCPCS: 31720; 36415; 71045; 74230; 80048; 80053; 80202; 82150; 82550; 83605; 83690; 83735; 84132; 85025; 85027; 85610; 85730; 87040; 87071; 87205; 87449; 87486; 87581; 87633; 87798; 87804; 92526; 92610; 92611; 93005; 94640; 94664; 97039; G0378; J0696; J1650; J1956; J2543; J2920; J3370; J3475; J3480; J3490; J7030; J7042

== ENCOUNTER 2018-05-06 20:35 | Emergency (ER) | payer MEDICARE ==
[2018-05-06] MEDS ORDERED: PREDNISONE 20 MG TABLET ONE (21:57)
== END 2018-05-06 22:18 | disposition home or self-care (01) ==
LOC: EDH 20:35
DX: J20.9 Acute bronchitis, unspecified (principal); F20.9 Schizophrenia, unspecified
CPT/HCPCS: 71045

== ENCOUNTER 2018-05-08 10:39 | Inpatient (IN) | payer MEDICARE ==
[~2018-05-08] VITALS: Ht 180.3 cm; Wt 55.8 kg
[2018-05-08 11:30] LABS: BASOPHILS % (AUTO) 0.7 % (0.0-5.0); EOSINOPHILS % (AUTO) 2.7 % (0.0-8.0); HEMATOCRIT 37.5 % (42-54); LYMPHOCYTES % (AUTO) 9.6 % (21.0-51.0); MEAN CORPUSCULAR HEMOGLOBIN 30.2 pg (27.0-33.0); MEAN CORPUSCULAR HGB CONC 33.2 g/dL (32.0-36.0); MEAN CORPUSCULAR VOLUME 90.9 fL (79-99); MONOCYTES % (AUTO) 6.3 % (3.0-13.0); NEUTROPHILS % (AUTO) 80.7 % (40.0-77.0); PLATELET COUNT (AUTO) 274 K/uL (130-400); RED BLOOD CELL COUNT(AUTO) 4.13 MIL/uL (4.50-6.20); RED CELL DISTRIBUTION WIDTH 15.5 % (11.0-15.5)
[2018-05-08 11:40] LABS: CARBON DIOXIDE 28 mmol/L (21-32); CHLORIDE 108 mmol/L (101-111); CREATININE 2.4 mg/dL (0.5-1.5); GLOMERULAR FILTR. RATE CALC 31 mL/min (>60); GLUCOSE,RANDOM 100 mg/dL (70-105); POTASSIUM 3.4 mmol/L (3.5-5.1); SODIUM SERUM 145 mmol/L (136-145); UREA NITROGEN, BLOOD 30 mg/dL (7-18)
[2018-05-08 11:46] LABS: ALANINE AMINOTRANSFERASE 27 U/L (12-78); ASPARTATE AMINOTRANSFERASE 15 U/L (10-37); BILIRUBIN,TOTAL 0.7 mg/dL (0.2-1.0); CREATINE KINASE, TOTAL 111 U/L (21-232); LIPASE 147 U/L (114-286); TOTAL PROTEIN, SERUM 7.7 g/dL (6.0-8.3)
[2018-05-08 11:55] LABS: PARTIAL THROMBOPLASTIN TIME 32.6 SEC (26.3-35.5); PROTHROMBIN TIME 10.5 SEC (9.6-11.6)
[2018-05-08 12:03] LABS: ALCOHOL, BLOOD < 3 mg/dL (0-10)
[2018-05-08] MEDS: MEGESTROL 400 MG/10 ML UDCUP PO SCH (18:00)
[2018-05-08] MEDS ORDERED: ONDANSETRON HCL 4 MG/2 ML VIAL IV PRN (18:00)
[2018-05-08] MEDS ORDERED: ACETAMINOPHEN 325 MG TAB PO PRN (18:00)
[2018-05-08 18:28] LABS: APPEARANCE,URINE CLEAR (CLEAR); BILIRUBIN,URINE NEGATIVE (NEGATIVE); COLOR,URINE YELLOW (YELLOW); GLUCOSE, URINE (UA) NEGATIVE (NEGATIVE); KETONES,URINE NEGATIVE (NEGATIVE); LEUKOCYTE ESTERASE ,URINE SMALL (NEGATIVE); NITRATE,URINE NEGATIVE (NEGATIVE); OCCULT BLOOD,URINE LARGE (NEGATIVE); PH,URINE 5.5 (5.0-8.0); PROTEIN,URINE NEGATIVE (NEGATIVE); UROBILINOGEN,URINE 0.2 mg/dL (0.2-1.0)
[2018-05-08 18:36] LABS: AMPHET/METH SCREEN,URINE NEGATIVE (NEGATIVE); BARBITURATE SCREEN, URINE NEGATIVE (NEGATIVE); BENZODIAZEPINES SCREEN,URINE NEGATIVE (NEGATIVE); CANNABINOID SCREEN,URINE NEGATIVE (NEGATIVE); COCAINE SCREEN,URINE NEGATIVE (NEGATIVE); OPIATE SCREEN,URINE NEGATIVE (NEGATIVE); PHENCYCLIDINE SCREEN,URINE NEGATIVE (NEGATIVE)
[2018-05-08] MEDS ORDERED: DOXYCYCLINE 100MG+NS 250ML 250 ML IV ONE (18:39)
[2018-05-08 18:46] LABS: AMORPHOUS SEDIMENT,UR Rare /LPF (None Seen); BACTERIA,URINE Rare /HPF (None Seen); SQUAMOUS EPITHELIAL CELL,UR Rare /HPF (0-2)
[2018-05-08] MEDS: DOXYCYCLINE 100MG+NS 250ML 250 ML IV SCH (20:00)
[2018-05-08] MEDS: ARIPIPRAZOLE 5 MG TABLET PO SCH (21:00)
[2018-05-08] MEDS ORDERED: DOXY100C2 PO (23:40)
[2018-05-08] MEDS ORDERED: FAMO20TA8 PO (23:40)
[2018-05-08] MEDS ORDERED: DOCU-116 PO (23:40)
[2018-05-08] MEDS ORDERED: PRED20TA3 PO (23:40)
[2018-05-08] MEDS ORDERED: DEXT15CA20 PO (23:40)
[2018-05-08] MEDS ORDERED: ARIP5TAB9 PO (23:40)
[2018-05-09] MEDS ORDERED: LIDOCAINE HCL-MPF 1% 2ML VIAL IVP PRN ×2 (03:30→12:30)
[2018-05-09 04:00] VITALS: BP 113/64
[2018-05-09] MEDS: SODIUM CHLORIDE 0.9% 1000ML 1,000 ML IV SCH ×3 (05:17→21:35)
[2018-05-09] MEDS: POTASSIUM CHLORIDE 20MEQ/100ML 100 ML IV PRN (05:18)
[2018-05-09 08:00] VITALS: BP 156/92
[2018-05-09] MEDS ORDERED: DOCUSATE SODIUM 100 MG CAP PO SCH (09:00)
[2018-05-09] MEDS ORDERED: FAMOTIDINE 20MG TAB 20 MG TAB PO SCH (09:00)
--- NOTE | 2018-05-09 09:50 | NUR ---
DYSPHAGIA EVAL COMPLETE. +S/S OF ASPIRATION OBSERVED WITH NECTAR THICK LIQUIDS. RECOMMEND PUREE TEXTURES, HONEY THICK LIQUIDS, AND MEDS CRUSHED WITH APPLESAUCE PATIENT INFORMATION: Pt IS A 47 Y.O. MALE REFERRED FOR DYSPHAGIA EVAL SECONDARY TO RECURRENT PNEUMONIA. Pt IS WELL KNOWN TO THIS SPLITTER HEAD AND HAS BEEN SEEN BY SPLITTER HEAD'S AT THIS FACILITY MULTIPLE TIMES. MOST RECENT MBSS ON 04/27/18 WITH RECOMMENDATION OF PUREE TEXTURES AND NECTAR THICK LIQUIDS. MEAL MONITOR COMPLETED BY SPLITTER HEAD ON 04/29/18 WITH +S/S OF ASPIRATION OBSERVED WITH RECOMMENDED DIET OF PUREE TEXTURES AND NECTAR THICK LIQUIDS SECONDARY TO FATIGUE LATER IN MEAL, AND PEG TUBE WAS RECOMMENDED AT THAT TIME WITH FAMILY REFUSING. Pt WAS DISCHARGED TO [facility], WHERE REPORTS Pt CONTINUED ON RECOMMENDED DIET OF PUREE TEXTURES AND NECTAR THICK LIQUIDS, BUT STAFF REPORTED Pt CONTINUED TO EXHIBIT S/S OF ASPIRATION WITH MEALS. Pt'S AND [id number] WERE PRESENT TODAY DURING BEDSIDE EVALUATION. EVALUATION: Pt PRESENTS WITH MODERATE OROPHARYNGEAL DYSPHAGIA C/B DECREASED ORAL STRENGTH AND ROM, DECREASED ORAL COORDINATION, DECREASED BOLUS PREP/MANIPULATION/PROPULSION, DELAYED PHARYNGEAL RESPONSE TIME, DECREASED LARYNGEAL ELEVATION/EXCURSION, AND IMPAIRED AIRWAY PROTECTION E/B INABILITY TO CLOSE MOUTH AROUND SPOON TO RETRIEVE PUREE BOLUS, NEUROGENIC CHEWING OF PUREE, DELAYED A-P PROPULSION, AND +S/S OF ASPIRATION WITH NECTAR THICK LIQUIDS. HONEY THICK LIQUIDS ELIMINATED S/S OF ASPIRATION. RECOMMENDATIONS: 1. PUREE TEXTURES 2. HONEY THICK LIQUIDS 3. MEDS CRUSHED WITH PUREE 4. SPLITTER HEAD TO F/U IN 2-3 DAYS Addendum: 05/09/18 at [address] Amended: Links added.
[2018-05-09] MEDS: FAMOTIDINE 20MG TAB 20 MG TAB PO SCH (10:31)
[2018-05-09] MEDS: MEGESTROL 400 MG/10 ML UDCUP PO SCH (10:33)
[2018-05-09] MEDS: ENOXAPARIN SODIUM 40 MG/0.4 ML SYRINGE SQ SCH (10:33)
[2018-05-09] MEDS: DOXYCYCLINE 100MG+NS 250ML 250 ML IV SCH ×2 (11:36→21:35)
[2018-05-09 12:00] VITALS: BP 136/80
[2018-05-09] MEDS ORDERED: POTASSIUM CHLORIDE 10MEQ/100ML 100 ML IV PRN (12:30)
[2018-05-09] MEDS ORDERED: POTASSIUM CHLORIDE 20 MEQ ERTAB PO PRN (12:30)
[2018-05-09 16:00] VITALS: BP 132/87
--- NOTE | 2018-05-09 16:34 | NUR ---
INITIAL: Met with pt and family this afternoon to discuss dcp. Pt is non verbal, per spouse pt admitted from [facility]. She mentions that pt was previously living at home and was independent w ambulation and ADLs. He previously had 17hrs/week of provider services via [facility] . Per spouse [place] and is not considering SNF. Addendum: 05/09/18 at 1648 by RUSSELL MILLER CM Amended: Links added.
[2018-05-09 19:47] VITALS: BP 138/84
[2018-05-09] MEDS ORDERED: ARIPIPRAZOLE 5 MG TABLET PO SCH (21:00)
[2018-05-09] MEDS: ARIPIPRAZOLE 5 MG TABLET PO SCH (21:34)
[2018-05-09 23:36] VITALS: BP 151/63
[2018-05-10] MEDS: SODIUM CHLORIDE 0.9% 1000ML 1,000 ML IV SCH (03:09)
[2018-05-10 03:54] VITALS: BP 150/79
[2018-05-10 06:23] LABS: BASOPHILS % (AUTO) 0.8 % (0.0-5.0); EOSINOPHILS % (AUTO) 4.3 % (0.0-8.0); LYMPHOCYTES % (AUTO) 16.4 % (21.0-51.0); MEAN CORPUSCULAR HEMOGLOBIN 30.2 pg (27.0-33.0); MEAN CORPUSCULAR HGB CONC 33.4 g/dL (32.0-36.0); MEAN CORPUSCULAR VOLUME 90.4 fL (79-99); NEUTROPHILS % (AUTO) 70.5 % (40.0-77.0); PLATELET COUNT (AUTO) 261 K/uL (130-400); RED BLOOD CELL COUNT(AUTO) 3.54 MIL/uL (4.50-6.20); RED CELL DISTRIBUTION WIDTH 15.4 % (11.0-15.5); WHITE BLOOD COUNT (AUTO) 9.3 K/uL (4.8-10.8)
[2018-05-10 06:30] LABS: CREATININE 1.7 mg/dL (0.5-1.5); POTASSIUM 3.3 mmol/L (3.5-5.1)
[2018-05-10 08:00] VITALS: BP 154/97
[2018-05-10] MEDS: DOCUSATE NA 100MG/10ML UDCUP PO SCH ×2 (09:59→20:43)
[2018-05-10] MEDS: MEGESTROL 400 MG/10 ML UDCUP PO SCH (09:59)
[2018-05-10] MEDS: FAMOTIDINE 20MG TAB 20 MG TAB PO SCH (10:00)
[2018-05-10] MEDS: ENOXAPARIN SODIUM 40 MG/0.4 ML SYRINGE SQ SCH (10:00)
[2018-05-10] MEDS: POTASSIUM CHLORIDE 10% ELIXIR 20 MEQ/15 ML UDCUP PO PRN ×3 (10:01→18:12)
[2018-05-10 12:00] VITALS: BP 147/87
[2018-05-10] MEDS: DOXYCYCLINE 100MG+NS 250ML 250 ML IV SCH ×2 (12:44→20:40)
[2018-05-10 16:00] VITALS: BP 160/98
--- NOTE | 2018-05-10 19:03 | NUR ---
PATIENT STARTED TO HAVE RASH TO NECK AREA. PAGED HOSPITALIST PIG LEAD MELTER HELPER FOR MEDICATION. AWAITING CALL BACK.
[2018-05-10] MEDS: DIPHENHYDRAMINE HCL 25 MG CAPSULE PO PRN (19:33)
[2018-05-10 20:00] VITALS: BP 156/94
--- NOTE | 2018-05-10 20:00 | NUR ---
BENADRL 25 MG GIVEN FOR NECK RASH. INFORMED ONCOMING NURSE TO MONITOR.
--- NOTE | 2018-05-10 20:30 | NUR ---
PIV IV site to left inner arm red,swollen,Iv dcd.cath tip intact.inserted a new iv to left upper arm x 3 attempts.
[2018-05-10] MEDS: ARIPIPRAZOLE 5 MG TABLET PO SCH (20:43)
--- NOTE | 2018-05-10 22:37 | NUR ---
MOVED PT MOVED TO ROOM 325,WITH BED ALARM,CLOSER TO NURSES STATION.YELLOW ARM BAND APPLIED.FALL RISK PRECAUTIONS INITIATED.
[2018-05-10 23:26] VITALS: BP 146/80
--- NOTE | 2018-05-11 02:09 | NUR ---
BATHE Pt s diaper was soiled with urine,assisted to the bathroom per staff.Changed gown,linen and diaper.Wiped with cgg wipes per staff.
[2018-05-11 04:17] VITALS: BP 133/81
[2018-05-11 05:53] LABS: BASOPHILS % (AUTO) 0.8 % (0.0-5.0); EOSINOPHILS % (AUTO) 4.2 % (0.0-8.0); HEMATOCRIT 33.1 % (42-54); LYMPHOCYTES % (AUTO) 22.4 % (21.0-51.0); MEAN CORPUSCULAR HEMOGLOBIN 30.8 pg (27.0-33.0); MEAN CORPUSCULAR HGB CONC 34.3 g/dL (32.0-36.0); MEAN CORPUSCULAR VOLUME 89.8 fL (79-99); MONOCYTES % (AUTO) 7.3 % (3.0-13.0); NEUTROPHILS % (AUTO) 65.3 % (40.0-77.0); NUCLEATED RED BLOOD CELLS 0.1 % (0.0-0.19); PLATELET COUNT (AUTO) 258 K/uL (130-400); RED BLOOD CELL COUNT(AUTO) 3.68 MIL/uL (4.50-6.20); RED CELL DISTRIBUTION WIDTH 15.1 % (11.0-15.5); WHITE BLOOD COUNT (AUTO) 10.3 K/uL (4.8-10.8)
[2018-05-11 06:25] LABS: CREATININE 1.5 mg/dL (0.5-1.5); POTASSIUM 3.3 mmol/L (3.5-5.1)
[2018-05-11] MEDS: POTASSIUM CHLORIDE 10% ELIXIR 20 MEQ/15 ML UDCUP PO PRN ×2 (06:55→21:32)
[2018-05-11] MEDS ORDERED: POTASSIUM CHLORIDE 10MEQ/100ML 100 ML IV PRN (07:45)
[2018-05-11] MEDS ORDERED: POTASSIUM CHLORIDE 10% ELIXIR 20 MEQ/15 ML UDCUP PO PRN (07:45)
[2018-05-11] MEDS ORDERED: LIDOCAINE HCL-MPF 1% 2ML VIAL IVP PRN (07:45)
[2018-05-11] MEDS ORDERED: POTASSIUM CHLORIDE 20 MEQ ERTAB PO PRN (07:45)
[2018-05-11 08:00] VITALS: BP 155/96
[2018-05-11] MEDS: DEXTROSE 5%-WATER 1,000 ML IV SCH (09:02)
[2018-05-11] MEDS: MEGESTROL 400 MG/10 ML UDCUP PO SCH (09:06)
[2018-05-11] MEDS: FAMOTIDINE 20MG TAB 20 MG TAB PO SCH (09:06)
[2018-05-11] MEDS: DOCUSATE NA 100MG/10ML UDCUP PO SCH ×2 (09:06→21:00)
[2018-05-11] MEDS: ENOXAPARIN SODIUM 40 MG/0.4 ML SYRINGE SQ SCH (09:07)
[2018-05-11 12:00] VITALS: BP 149/100
--- NOTE | 2018-05-11 14:17 | NUR ---
MBSS COMPLETED. +S/S ASPIRATION WITH HONEY-THICK LIQUIDS AND SEVERE STASIS WITH PUREED TEXTURE. RECOMMEND NPO, LONG-TERM ALTERNATE MEANS OF NUTRITION/HYDRATION. PATIENT INFORMATION: Pt IS A 47 YEAR OLD MALE REFERRED FOR AN MBSS SECONDARY TO POSSIBLE ASPIRATION. Pt COOPERATIVE DURING THE MBSS WITH LIMITED VERBAL OUTPUT. Pt CURRENTLY ADMITTED SECONDARY TO DYSPHAGIA. Pt HAS A PAST MEDICAL HISTORY SIGNIFICANT FOR SCHIZOPHRENIA, PNEUMONIA, WEIGHT LOSS, ACUTE RESPIRATORY DISTRESS, SEPSIS, ACUTE PNEUMONIA. Pt WITH HISTORY OF DYSPHAGIA. MBSS INTERPRETATION: Pt PRESENTS WITH SEVERE OROPHARYNGEAL DYSPHAGIA E/B DECREASED ORAL MOTOR COORDINATION, DECREASED TONGUE BASE RETRACTION, DECREASED LARYNGEAL ELEVATION/EXCURSION, DELAYED PHARYNGEAL RESPONSE TIME, DECREASED PRESSURE GENERATION WITHIN THE PHARYNX, AND DECREASED AIRWAY PROTECTION DURING THE SWALLOW E/B MULTIPLE SWALLOWS PER BOLUS, SEVERE POOLING IN THE VALLECULAE WITH SPILLOVER IN TO PYRIFORM SINUS (NOT ABLE TO CLEAR), RESULTING IN BENSON ASPIRATION DURING THE SWALLOW WITH HONEY-THICK LIQUIDS AND ASPIRATION AFTER THE SWALLOW FROM POOLED BOLUS IN VALLECULAE AND PYRIFORM SINUS WITH PUREED TEXTURE. Pt WITH THROAT CLEAR AFTER THE ASPIRATION. MBSS STOPPED SECONDARY TO INCREASED ASPIRATION. TRIALS: 1. TSP PUREED: SEVERE POOLING IN THE VALLECULAE (UNABLE TO CLEAR), ASPIRATION AFTER THE SWALLOW FROM POOLED MATERIAL 2. TSP HONEY-THICK LIQUIDS: BENSON ASPIRATION RECOMMENDATIONS: 1. NPO, LONG-TERM ALTERNATE MEANS OF NUTRITION/HYDRATION 2. GI CONSULT 3. DIETARY CONSULT. 4. DYSPHAGIA THERAPY 3-5X WEEK TO INCREASE ORAL MOTOR STRENGTH AND PHARYNGEAL SWALLOW: LTG#1: Pt WILL TOLERATE LEAST RESTRICTIVE DIET TO MEET NUTRITION/HYDRATION WITH NO S/S OF ASPIRATION. LTG#2: SKILLED EDUCATION Pt/FAMILY/STAFF STG#1: Pt WILL PARTICIPATE IN LARYNGEAL ELEVATION/EXCURSION EXERCISES WITH 80% ACCURACY. STG#2: Pt WILL PARTICIPATE IN TONGUE BASE RETRACTION EXERCISES WITH 80% ACCURACY. STG#3: Pt WILL PARTICIPATE IN ORAL MOTOR EXERCISES WITH 80% ACCURACY. STG#4: Pt WILL PARTICIPATE IN NIÑO WATER PROTOCOL WITH NO S/S OF ASPIRATION, STG#5: PT WILL BE ABLE TO PARTICIPATE IN MBSS AFTER 2-4 WEEKS OF THERAPEUTIC INTERVENTION. STG#6: SKILLED EDUCATION Pt/FAMILY/STAFF. TIP PUNCHER REVIEWED RESULTS AND RECOMMENDATIONS WITH Pt AND . VERBALIZED AGREEMENT AND COMPLIANCE WITH RECOMMENDATIONS. G-CODES SWALLOWING: [id number] Addendum: 05/11/18 at 1422 by GREGORIO LEWIS, SPT ST Amended: Links added.
[2018-05-11 16:00] VITALS: BP 163/108
[2018-05-11 19:00] VITALS: BP 142/103
[2018-05-11] MEDS: DIPHENHYDRAMINE HCL 25 MG CAPSULE PO PRN (21:32)
[2018-05-11] MEDS: ARIPIPRAZOLE 5 MG TABLET PO SCH (21:32)
[2018-05-12] VITALS: BP 129/67
[2018-05-12 04:00] VITALS: BP 143/77
[2018-05-12 05:55] LABS: BASOPHILS % (AUTO) 0.8 % (0.0-5.0); EOSINOPHILS % (AUTO) 3.4 % (0.0-8.0); HEMATOCRIT 33.6 % (42-54); LYMPHOCYTES % (AUTO) 26.3 % (21.0-51.0); MEAN CORPUSCULAR HGB CONC 33.8 g/dL (32.0-36.0); MEAN CORPUSCULAR VOLUME 88.9 fL (79-99); MONOCYTES % (AUTO) 7.4 % (3.0-13.0); NEUTROPHILS % (AUTO) 62.1 % (40.0-77.0); NUCLEATED RED BLOOD CELLS 0.1 % (0.0-0.19); PLATELET COUNT (AUTO) 256 K/uL (130-400); RED BLOOD CELL COUNT(AUTO) 3.78 MIL/uL (4.50-6.20); WHITE BLOOD COUNT (AUTO) 9.8 K/uL (4.8-10.8)
[2018-05-12 06:07] LABS: CREATININE 1.4 mg/dL (0.5-1.5); MAGNESIUM 1.5 mg/dL (1.80-2.40); POTASSIUM 3.2 mmol/L (3.5-5.1)
[2018-05-12 07:00] VITALS: BP 119/69
[2018-05-12] MEDS: DEXTROSE 5%-WATER 1,000 ML IV SCH (10:25)
[2018-05-12] MEDS: FAMOTIDINE 20MG TAB 20 MG TAB PO SCH (10:34)
[2018-05-12] MEDS: ENOXAPARIN SODIUM 40 MG/0.4 ML SYRINGE SQ SCH (10:34)
[2018-05-12] MEDS: DOCUSATE NA 100MG/10ML UDCUP PO SCH ×2 (10:34→22:07)
[2018-05-12] MEDS: MEGESTROL 400 MG/10 ML UDCUP PO SCH (10:35)
[2018-05-12 11:00] VITALS: BP 139/88
[2018-05-12] MEDS: MAGNESIUM 2GM PREMIX 50ML 50 ML IV PRN (12:45)
[2018-05-12] MEDS: POTASSIUM CHLORIDE 10% ELIXIR 20 MEQ/15 ML UDCUP PO PRN (12:45)
--- NOTE | 2018-05-12 14:20 | NUR ---
DC PLAN TO [facility] CONSENT /NATE FROM [facility] FOR [facility], PER HER REQUEST- STATED SHE HAD ALREADY CALLED AND INQUIRED, GOT THE OK TO REFER FROM CELIO DENISE, CALLED TRAN , STATES HE WOULD COME REVIEW TOMORRW. PT HAS NEW GI CONSULT FOR PEG IN AM.
--- NOTE | 2018-05-12 16:00 | NUR ---
PT NOTE: PATIENT PRESENTS WITH POOR FUNCTIONAL ABILITY OF B HANDS. PATIENT REQUIRES ASSIST TO SAFELY PERFORM ADLS SECONDARY TO POOR DEXTERITY AND COORDINATION OF B UE'S. PATIENT WILL BENEFIT FROM CONTINUED OCCUPATIONAL AND SPEECH THERAPY SECONDARY TO PATIENT ON THICKENED LIQUIDS PRIOR TO D/C HOME. Addendum: 05/13/18 at 0858 by GUILLERMO JOHNSTON PT Amended: Links added.
--- NOTE | 2018-05-12 17:38 | NUR ---
Nutrition intervention: ADAM nutrition screen for low BMI. Pt admitted for dysphagia, currently NPO, s/p MANAGER PRACTICE evaluation and MBSS. MANAGER PRACTICE recommendations of NPO terminal block assembler alternate means of nutrition. As per pt's RN, pt pending PEG placement tomorrow. TF recommendations to follow PEG placement. LBM 05/11. BMI 17.2-underweight. Alb 3.0. Addendum: 05/12/18 at [address] Amended: Links added.
[2018-05-12 19:00] VITALS: BP 139/97
[2018-05-12] MEDS: IPRATROPIUM/ALBUTEROL SULFATE 3 ML SOLUTION IH SCH ×2 (20:09→23:49)
--- NOTE | 2018-05-12 21:10 | NUR ---
PIV PATIENT PULLED OUT IV. IV SITE CLEANED AND DRESSED. NO REDNESS, BRUISING, EDEMA OR HEMATOMA. NOTED
[2018-05-12] MEDS: DIPHENHYDRAMINE HCL 25 MG CAPSULE PO PRN (22:07)
[2018-05-12] MEDS: ARIPIPRAZOLE 5 MG TABLET PO SCH (22:07)
[2018-05-13] VITALS (20 sets, daily range): BP systolic 120–153; BP diastolic 74–105
[2018-05-13 05:57] LABS: BASOPHILS % (AUTO) 0.7 % (0.0-5.0); EOSINOPHILS % (AUTO) 2.4 % (0.0-8.0); HEMATOCRIT 34.6 % (42-54); LYMPHOCYTES % (AUTO) 26.2 % (21.0-51.0); MEAN CORPUSCULAR HEMOGLOBIN 30.2 pg (27.0-33.0); MEAN CORPUSCULAR VOLUME 88.7 fL (79-99); MONOCYTES % (AUTO) 7.5 % (3.0-13.0); NEUTROPHILS % (AUTO) 63.2 % (40.0-77.0); PLATELET COUNT (AUTO) 273 K/uL (130-400); RED CELL DISTRIBUTION WIDTH 15.3 % (11.0-15.5); WHITE BLOOD COUNT (AUTO) 8.5 K/uL (4.8-10.8)
[2018-05-13] MEDS: IPRATROPIUM/ALBUTEROL SULFATE 3 ML SOLUTION IH SCH ×3 (06:00→18:05)
--- NOTE | 2018-05-13 06:15 | NUR ---
PROCEDURE GI STAFF HERE TO TAKE PATIENT FOR EGD WITH PEG PLACEMENT. PATIENT IS ALONE
[2018-05-13 06:20] LABS: CREATININE 1.3 mg/dL (0.5-1.5); MAGNESIUM 2.1 mg/dL (1.80-2.40); POTASSIUM 3.4 mmol/L (3.5-5.1)
[2018-05-13] MEDS ORDERED: CEFAZOLIN SODIUM 1 GM VIAL ONE (07:19)
[2018-05-13] MEDS ORDERED: PROPOFOL 10 MG/ML 20ML VIAL IV ONE (07:22)
--- NOTE | 2018-05-13 08:00 | NUR ---
GI LAB REPORT RECEIVED FROM GI LAB
--- NOTE | 2018-05-13 08:15 | NUR ---
BACK FROM PROCEDURE PATIENT RETURNED TO ROOM. LOC AT BASELINE. PEG IN PLACE-BUMPER AT 2.5CM [place]. POST PROCEDURE VITAL SIGNS STARTED
--- NOTE | 2018-05-13 08:20 | NUR ---
Patient arrived from GI lab s/p EGD/PEG tube placement by Dr. Muñoz. Bed placed to lowest position, call light placed within reach, post op vitals started and abdominal binder placed. Patient alert and awake in no apparent distress. Peg tube in place at 2.5cm.
[2018-05-13] MEDS: ENOXAPARIN SODIUM 40 MG/0.4 ML SYRINGE SQ SCH (08:31)
[2018-05-13] MEDS: FAMOTIDINE 20MG TAB 20 MG TAB PO SCH (09:00)
[2018-05-13] MEDS: DOCUSATE NA 100MG/10ML UDCUP PO SCH ×2 (09:00→21:37)
[2018-05-13] MEDS: MEGESTROL 400 MG/10 ML UDCUP PO SCH (09:00)
[2018-05-13] MEDS ORDERED: LORAZEPAM 2 MG/ML 1 ML VIAL IVP SCH (12:00)
--- NOTE | 2018-05-13 14:30 | NUR ---
TF RECOMMENDATIONS: Pt is s/p PEG placement. Nurse Shalonda called RD for TF recommendations. Bolus recommendations made based on PMH, lab values and medications. Recommendations: Jevity 1.5- 5 cans daily. 75ml flush before and after each feeding. 1.5 cans @ 06:00 1.0 can @ 11:00 1.5 cans @ 16:00 1.0 cans @ 21:00 RD to continue monitoring pt's nutritional status for continued intervention.
[2018-05-13] MEDS: DEXTROSE 5%-WATER 1,000 ML IV SCH (15:23)
--- NOTE | 2018-05-13 17:42 | NUR ---
Initiated PEG tube feeding. Air bolus and verified placement. Bed up to 40 degree angle and instructed family to keep up for at least 30 min post feeding to prevent aspiration. Jevity 1.5 cans given with total h2o 150. Pt tolerated feeding well.
[2018-05-13] MEDS: POTASSIUM CHLORIDE 10% ELIXIR 20 MEQ/15 ML UDCUP PO PRN (21:38)
[2018-05-13] MEDS: ARIPIPRAZOLE 5 MG TABLET PO SCH (21:38)
[2018-05-13] MEDS: DIPHENHYDRAMINE HCL 25 MG CAPSULE PO PRN (21:40)
--- NOTE | 2018-05-13 22:00 | NUR ---
BOLUS FEEDING VIA PEG TUBE AIR BOLUS TO CHECK FOR PLACEMENT. HOB REMAINS AT 30 DEGREES. ZERO RESIDUAL OBTAINED. JEVITY 1.5 1 CAN GIVEN PER GRAVITY. FLUSHED WITH 75ML BEFORE AND AFTER FEEDING. PATIENT TOLERATED FEEDING WELL.
[2018-05-14] MEDS: DEXTROSE 5%-WATER 1,000 ML IV SCH ×2 (02:25→15:57)
[2018-05-14 03:00] VITALS: BP 123/91
[2018-05-14 05:51] LABS: MAGNESIUM 1.8 mg/dL (1.80-2.40); POTASSIUM 3.7 mmol/L (3.5-5.1)
[2018-05-14] MEDS ORDERED: IPRATROPIUM/ALBUTEROL SULFATE 3 ML SOLUTION IH PRN (06:00)
--- NOTE | 2018-05-14 06:00 | NUR ---
BOLUS FEEDING VIA PEG TUBE. AIR BOLUS GIVEN TO CHECK FOR PLACEMENT. HOB REMAINS ELEVATED AT 30 DEGREES. ZERO RESIDUAL OBTAINED. JEVITY 1.5 ONE AND ONE HALF (1.5) CANS GIVEN. FLUSHED WITH TOTAL 150ML WATER. PATIENT TOLERATED WELL
[2018-05-14] MEDS: MAGNESIUM 2GM PREMIX 50ML 50 ML IV PRN (06:04)
[2018-05-14 09:35] VITALS: BP 149/99
[2018-05-14] MEDS: FAMOTIDINE 20MG TAB 20 MG TAB PO SCH (10:03)
[2018-05-14] MEDS: DOCUSATE NA 100MG/10ML UDCUP PO SCH ×2 (10:03→21:00)
[2018-05-14] MEDS: MEGESTROL 400 MG/10 ML UDCUP PO SCH (10:03)
[2018-05-14] MEDS: ENOXAPARIN SODIUM 40 MG/0.4 ML SYRINGE SQ SCH (10:04)
[2018-05-14 12:07] VITALS: BP 130/96
[2018-05-14 16:27] VITALS: BP 129/89
[2018-05-14] MEDS: DIPHENHYDRAMINE HCL 25 MG CAPSULE PO PRN (18:16)
[2018-05-14 19:24] VITALS: BP 140/96
--- NOTE | 2018-05-14 22:00 | NUR ---
Patient tolerated bolus feeding of Jevity 1.5 well. A total of 150 water flush was infused and checked placement with air bolus and verified that it is in the correct place. No residual noted
[2018-05-14] MEDS: NYSTATIN 15 GM OINT TP SCH (22:36)
[2018-05-14] MEDS: ARIPIPRAZOLE 5 MG TABLET PO SCH (22:36)
[2018-05-14] MEDS: METOPROLOL TARTRATE 25 MG TAB PO SCH (22:51)
[2018-05-15] VITALS (7 sets, daily range): BP systolic 108–138; BP diastolic 75–95
[2018-05-15] MEDS: DEXTROSE 5%-WATER 1,000 ML IV SCH ×2 (05:05→23:19)
[2018-05-15 05:25] LABS: HEMATOCRIT 36.2 % (42-54); MEAN CORPUSCULAR HEMOGLOBIN 30.3 pg (27.0-33.0); MEAN CORPUSCULAR VOLUME 89.2 fL (79-99); PLATELET COUNT (AUTO) 192 K/uL (130-400); RED BLOOD CELL COUNT(AUTO) 4.05 MIL/uL (4.50-6.20); RED CELL DISTRIBUTION WIDTH 15.4 % (11.0-15.5); WHITE BLOOD COUNT (AUTO) 12.5 K/uL (4.8-10.8)
[2018-05-15 05:38] LABS: CREATININE 1.1 mg/dL (0.5-1.5); POTASSIUM 3.1 mmol/L (3.5-5.1)
--- NOTE | 2018-05-15 05:50 | NUR ---
Patient tolerated bolus feeding of Jevity 1.5. a total of 150 water flush was infused and checked placement with air bolus and verified that it is in the correct place. No residual noted
[2018-05-15] MEDS: POTASSIUM CHLORIDE 20MEQ/100ML 100 ML IV PRN (07:02)
[2018-05-15] MEDS: MEGESTROL 400 MG/10 ML UDCUP PO SCH (08:36)
[2018-05-15] MEDS: DIPHENHYDRAMINE HCL 25 MG CAPSULE PO PRN ×2 (08:36→23:20)
[2018-05-15] MEDS: METOPROLOL TARTRATE 25 MG TAB PO SCH ×2 (08:36→23:18)
[2018-05-15] MEDS: FAMOTIDINE 20MG TAB 20 MG TAB PO SCH (08:36)
[2018-05-15] MEDS: ENOXAPARIN SODIUM 40 MG/0.4 ML SYRINGE SQ SCH (08:42)
[2018-05-15] MEDS: NYSTATIN 15 GM OINT TP SCH ×2 (08:43→23:18)
[2018-05-15] MEDS: DOCUSATE NA 100MG/10ML UDCUP PO SCH ×2 (09:00→21:00)
--- NOTE | 2018-05-15 16:00 | NUR ---
PATIENT DECLINED AT [facility] THIS JOSE LUIS DAWSON . PROSPER BY [facility]. ADVISED SPOUSE, SHE REQ FOR [facility]. POI. PKT SENT
--- NOTE | 2018-05-15 18:00 | NUR ---
PASSR + PASSR CREATED FOR [facility], PENDING FAX AND CALRIFICATION ORDE
--- NOTE | 2018-05-15 18:40 | NUR ---
Nutrition f/u: Pt with bolus feedings. As per pt's nurse, no nutritional concerns. Pt tolerating feedings and family being educated on feeding schedule and regimen. Family with no nutritional questions. ADAM to continue monitoring pt's nutritional status. Recommendations: Continue current diet therapy. Addendum: 05/15/18 at [address] Amended: Links added.
[2018-05-15] MEDS: METRONIDAZOLE 500MG/100ML BAG 100 ML IV SCH (23:18)
[2018-05-15] MEDS: ARIPIPRAZOLE 5 MG TABLET PO SCH (23:18)
[2018-05-16 03:19] VITALS: BP 119/86
[2018-05-16 05:02] LABS: HEMATOCRIT 35.4 % (42-54); MEAN CORPUSCULAR HEMOGLOBIN 30.1 pg (27.0-33.0); MEAN CORPUSCULAR HGB CONC 33.8 g/dL (32.0-36.0); MEAN CORPUSCULAR VOLUME 89.2 fL (79-99); PLATELET COUNT (AUTO) 195 K/uL (130-400); RED BLOOD CELL COUNT(AUTO) 3.96 MIL/uL (4.50-6.20); RED CELL DISTRIBUTION WIDTH 15.5 % (11.0-15.5); WHITE BLOOD COUNT (AUTO) 13.7 K/uL (4.8-10.8)
[2018-05-16 05:12] LABS: POTASSIUM 3.5 mmol/L (3.5-5.1)
[2018-05-16] MEDS: POTASSIUM CHLORIDE 10% ELIXIR 20 MEQ/15 ML UDCUP PO PRN (06:23)
[2018-05-16] MEDS: DEXTROSE 5%-WATER 1,000 ML IV SCH ×2 (06:23→18:26)
[2018-05-16 07:00] VITALS: BP 133/88
[2018-05-16] MEDS: MEGESTROL 400 MG/10 ML UDCUP PO SCH (08:48)
[2018-05-16] MEDS: FAMOTIDINE 20MG TAB 20 MG TAB PO SCH (08:48)
[2018-05-16] MEDS: DIPHENHYDRAMINE HCL 25 MG CAPSULE PO PRN (08:48)
[2018-05-16] MEDS: NYSTATIN 15 GM OINT TP SCH ×2 (08:49→22:29)
[2018-05-16] MEDS: METOPROLOL TARTRATE 25 MG TAB PO SCH ×2 (08:49→22:23)
[2018-05-16] MEDS: METRONIDAZOLE 500MG/100ML BAG 100 ML IV SCH ×2 (08:49→22:22)
[2018-05-16] MEDS: ENOXAPARIN SODIUM 40 MG/0.4 ML SYRINGE SQ SCH (08:49)
[2018-05-16 11:00] VITALS: BP 122/84
[2018-05-16] MEDS: DOCUSATE NA 100MG/10ML UDCUP PO SCH ×2 (11:08→22:23)
[2018-05-16 15:15] VITALS: BP 122/88
--- NOTE | 2018-05-16 16:00 | NUR ---
CM NOTE Pt evaluated by Sherley from [facility]. States they cannot accept at this time since pt still with sitter.
[2018-05-16] MEDS: ARIPIPRAZOLE 5 MG TABLET PO SCH (22:22)
[2018-05-17 07:00] VITALS: BP 128/86
[2018-05-17] MEDS: FAMOTIDINE 20MG TAB 20 MG TAB PO SCH (09:07)
[2018-05-17] MEDS: DOCUSATE NA 100MG/10ML UDCUP PO SCH ×2 (09:07→20:14)
[2018-05-17] MEDS: METRONIDAZOLE 500MG/100ML BAG 100 ML IV SCH ×2 (09:07→20:14)
[2018-05-17] MEDS: MEGESTROL 400 MG/10 ML UDCUP PO SCH (09:07)
[2018-05-17] MEDS: METOPROLOL TARTRATE 25 MG TAB PO SCH ×2 (09:07→20:15)
[2018-05-17] MEDS: NYSTATIN 15 GM OINT TP SCH ×2 (09:08→20:30)
[2018-05-17] MEDS: ENOXAPARIN SODIUM 40 MG/0.4 ML SYRINGE SQ SCH (09:08)
[2018-05-17] MEDS: DEXTROSE 5%-WATER 1,000 ML IV SCH ×2 (09:13→20:15)
[2018-05-17 11:00] VITALS: BP 123/80
[2018-05-17 16:47] VITALS: BP 117/83
[2018-05-17 19:04] VITALS: BP 132/80
[2018-05-17] MEDS: ARIPIPRAZOLE 5 MG TABLET PO SCH (20:14)
--- NOTE | 2018-05-17 21:00 | NUR ---
BOLUS FEED Pt cuco Jevity 1.5 can via peg,hob elevated 45 degrees.
[2018-05-17 23:10] VITALS: BP 122/93
--- NOTE | 2018-05-18 03:21 | NUR ---
SITTER Pt has a sitter available due to high risk for fall,pulling out iv,peg.
[2018-05-18 04:10] VITALS: BP 143/81
[2018-05-18 07:00] VITALS: BP 131/69
[2018-05-18] MEDS: NYSTATIN 15 GM OINT TP SCH ×2 (09:13→22:27)
[2018-05-18] MEDS: METRONIDAZOLE 500MG/100ML BAG 100 ML IV SCH (09:13)
[2018-05-18] MEDS: METOPROLOL TARTRATE 25 MG TAB PO SCH ×2 (09:13→22:27)
[2018-05-18] MEDS: DOCUSATE NA 100MG/10ML UDCUP PO SCH ×2 (09:13→22:27)
[2018-05-18] MEDS: FAMOTIDINE 20MG TAB 20 MG TAB PO SCH (09:13)
[2018-05-18] MEDS: MEGESTROL 400 MG/10 ML UDCUP PO SCH (09:13)
[2018-05-18] MEDS: ENOXAPARIN SODIUM 40 MG/0.4 ML SYRINGE SQ SCH (09:14)
[2018-05-18 11:00] VITALS: BP 116/84
[2018-05-18 11:54] LABS: BASOPHILS % (AUTO) 0.6 % (0.0-5.0); EOSINOPHILS % (AUTO) 0.8 % (0.0-8.0); HEMATOCRIT 37.6 % (42-54); LYMPHOCYTES % (AUTO) 16.5 % (21.0-51.0); MEAN CORPUSCULAR HGB CONC 33.9 g/dL (32.0-36.0); MEAN CORPUSCULAR VOLUME 88.5 fL (79-99); MONOCYTES % (AUTO) 9.1 % (3.0-13.0); PLATELET COUNT (AUTO) 284 K/uL (130-400); RED BLOOD CELL COUNT(AUTO) 4.25 MIL/uL (4.50-6.20); RED CELL DISTRIBUTION WIDTH 15.1 % (11.0-15.5)
[2018-05-18 12:01] LABS: CREATININE 0.9 mg/dL (0.5-1.5); POTASSIUM 4.1 mmol/L (3.5-5.1)
[2018-05-18] MEDS: DEXTROSE 5%-WATER 1,000 ML IV SCH (13:05)
[2018-05-18 16:00] VITALS: BP 139/93
--- NOTE | 2018-05-18 19:30 | NUR ---
LEFT EYE REDNESS Patient developed redness to left eye. He has been rubbing eye. Nurse Practitioner paged, no answer. Dr. Najera made aware during his rounds. Started on clindamycin 600mg Iv q8H.
[2018-05-18 20:00] VITALS: BP 129/92
[2018-05-18] MEDS: ARIPIPRAZOLE 5 MG TABLET PO SCH (22:26)
[2018-05-18] MEDS: CLINDAMYCIN 600 MG/D5% WATER 50 ML IV SCH (22:27)
--- NOTE | 2018-05-18 23:27 | NUR ---
BOLUS FEED Jevity bolus feeding given per Kiara Phillips,pt cuco rivera.Hob up 45 degrees. Addendum: 05/18/18 at 7228 by SILVANA SUAZO RN RN Amended: Links added.
[2018-05-19 00:12] VITALS: BP 126/86
--- NOTE | 2018-05-19 03:32 | NUR ---
NEW IV New iv started to left forearm x 1 attempt.
[2018-05-19] MEDS: CLINDAMYCIN 600 MG/D5% WATER 50 ML IV SCH (03:58)
[2018-05-19 04:00] VITALS: BP 125/82
[2018-05-19 05:11] LABS: HEMATOCRIT 40.1 % (42-54); MEAN CORPUSCULAR HEMOGLOBIN 29.9 pg (27.0-33.0); MEAN CORPUSCULAR VOLUME 88.2 fL (79-99); PLATELET COUNT (AUTO) 291 K/uL (130-400); RED BLOOD CELL COUNT(AUTO) 4.54 MIL/uL (4.50-6.20); WHITE BLOOD COUNT (AUTO) 11.1 K/uL (4.8-10.8)
[2018-05-19 05:22] LABS: CREATININE 0.9 mg/dL (0.5-1.5); POTASSIUM 4.3 mmol/L (3.5-5.1)
--- NOTE | 2018-05-19 07:36 | NUR ---
CALM Pt remained calm all night.
[2018-05-19 08:00] VITALS: BP 124/89
[2018-05-19 12:00] VITALS: BP 130/86
[2018-05-19] MEDS: METOPROLOL TARTRATE 25 MG TAB PO SCH (12:16)
[2018-05-19] MEDS: FAMOTIDINE 20MG TAB 20 MG TAB PO SCH (12:16)
[2018-05-19] MEDS: MEGESTROL 400 MG/10 ML UDCUP PO SCH (12:17)
[2018-05-19] MEDS: DOCUSATE NA 100MG/10ML UDCUP PO SCH (12:17)
[2018-05-19] MEDS: ENOXAPARIN SODIUM 40 MG/0.4 ML SYRINGE SQ SCH (12:21)
--- NOTE | 2018-05-19 13:20 | NUR ---
DISCHARGE Report was called to nurse Fiona Torres LVN at [facility]. Discharge was done. Family was contacted per [employer] number to inform them of transfer; no answer. Called EMS and spoke to Mara; stated she will call if she has any questions, otherwise wait for ambulance. Called Medical Records and requested chart copied. Pending for patient to be transferred to [facility].
--- NOTE | 2018-05-19 13:57 | NUR ---
SHARON ROMERO WITH [facility] CALLED SAID PATIENT ACCEPTED. LET NURSE AND MD KNOW. PASRR DONE. POSITIVE PASRR ORDERED DONE AND SENT. EMS SET UP. AGREES PATIENT NOT SAFE TO TRANSFER VIA FACILITY VEHICLE. EMS DONE THIS IS CLOSEST FACILITY THAT ACCEPTED PATIENT DUE TO BEHAVIORAL AND MENTAL CONCERNS. Addendum: 05/19/18 at 1401 by ASTRID DAWSON RN CM Amended: Links added.
--- NOTE | 2018-05-19 14:06 | NUR ---
TRANSFER TO [place] Taken by EMS to [facility]. hep lock removed by nursing professor to left lateral wrist # 22g site intact; no swelling, no erythema.
== END 2018-05-19 14:15 | DRG 391 ==
LOC: EDH 10:39 → OBSVTOIN 17:54 → EDHIP 17:54 → 3DH 22:30
PROVIDERS: ADMIT Internal Medicine; ATTEND Internal Medicine
PROC: 0DH63UZ Insertion of Feeding Device into Stomach, Percutaneous Approach (ICD-10-PCS; principal; 2018-05-13)
DX: R13.10 Dysphagia, unspecified (principal); E41 Nutritional marasmus; N17.9 Acute kidney failure, unspecified; N39.0 Urinary tract infection, site not specified; E87.0 Hyperosmolality and hypernatremia; Z68.1 Body mass index [BMI] 19.9 or less, adult; E44.0 Moderate protein-calorie malnutrition; E87.6 Hypokalemia; F20.9 Schizophrenia, unspecified; I10 Essential (primary) hypertension; K31.89 Other diseases of stomach and duodenum; K21.9 Gastro-esophageal reflux disease without esophagitis; Z83.3 Family history of diabetes mellitus; Z82.49 Family history of ischemic heart disease and other diseases of the circulatory system
CPT/HCPCS: 36415; 43239; 70490; 71045; 74230; 80048; 80053; 80305; 81001; 82550; 83690; 83735; 84132; 84484; 85025; 85027; 85610; 85730; 92610; 92611; 93005; 94640; 94664; 97039; A6250; G0378; G0480; J0690; J1650; J2060; J2704; J3475; J3480; J3490; J7070; Q0163